=== PATIENT | female | born 1990 | race Hispanic/Latino ===

== ENCOUNTER 2017-03-13 21:26 | Observation (INO) | payer OTHER ==
[2017-03-13 21:35] VITALS: BP 121/75; PULSE 103; RESP 16; TEMP 98.8; O2SAT 99
[2017-03-13] MEDS ORDERED: Sodium Chloride 0.9% 1,000 ML IV STA (22:17)
[2017-03-13 22:47] LABS: BASO % 0.1 % (0.0-2.0); EOS % 0.2 % (0.0-4.0); HEMATOCRIT 38.4 % (34.0-47.0); LYMPH # 0.8 K/uL (1.0-4.3); LYMPH % 12.6 % (20.0-40.0); MEAN CELL VOLUME 88.4 fl (81.0-99.0); MEAN CORPUSCULAR HEMOGLOBIN 29.2 pg (27.0-31.0); MEAN PLATELET VOLUME 7.9 fl (7.2-11.7); MONO # 0.5 K/uL (0.0-0.8); MONO % 8.4 % (0.0-10.0); NEUT # 4.8 K/uL (1.8-7.0); NEUT % 78.7 % (50.0-75.0); RED CELL DISTRIBUTION WIDTH 12.6 % (11.5-14.5); WHITE BLOOD COUNT 6.1 K/uL (4.8-10.8)
--- NOTE | 2017-03-13 23:04 | ED PDOC ---
HPI: Abdomen Time Seen by Provider: 03/13/17 21:37 Chief Complaint (Nursing): Abdominal Pain Chief Complaint (Provider): abdominal pain History Per: Patient History/Exam Limitations: no limitations Onset/Duration Of Symptoms: Days (1) Current Symptoms Are (Timing): Still Present Location Of Pain/Discomfort: LLQ, Suprapubic Quality Of Discomfort: Cramping Associated Symptoms: Nausea, Diarrhea (x2). denies: Fever, Chills, Vomiting Additional History Per: Patient Additional Complaint(s): 26 y/o female presents with abdominal pain x 1 day. Patient states pain diffusely "dull" but intermittently notes sharp pain in left lower abdomen. Associated nonbloody diarrhea x 2. Patient seen by PMD and prescirbed Bentyl with little improvement. Denies fever, vomiting, chest pain, shortness of breath, palpitations, urinary symptoms, vaginal bleeding/discharge. Abnormal Vaginal Bleeding: No Past Medical History Reviewed: Historical Data, Nursing Documentation, Vital Signs Vital Signs: Last Vital Signs Temp 98.8 F 03/13/17 21:33 Pulse 103 H 03/13/17 21:33 Resp 16 03/13/17 21:33 BP 121/75 03/13/17 21:33 Pulse Ox 99 03/14/17 04:17 - Medical History PMH: No Chronic Diseases - Surgical History Surgical History: No Surg Hx - Family History Family History: States: No Known Family Hx - Living Arrangements Living Arrangements: Alone - Allergies Allergies/Adverse Reactions: Allergies Allergy/AdvReac Type Severity Reaction Status Date / Time No Known Allergies Allergy Verified 03/13/17 21:32 Review of Systems ROS Statement: Except As Marked, All Systems Reviewed And Found Negative Gastrointestinal: Positive for: Abdominal Pain Physical Exam - Reviewed Nursing Documentation Reviewed: Yes Vital Signs Reviewed: Yes - Physical Exam Appears: Positive for: Well, Non-toxic, No Acute Distress Head Exam: Positive for: ATRAUMATIC, NORMAL INSPECTION, NORMOCEPHALIC Skin: Positive for: Normal Color Eye Exam: Positive for: Normal appearance ENT: Positive for: Normal ENT Inspection Cardiovascular/Chest: Positive for: Regular Rate, Rhythm Respiratory: Positive for: Normal Breath Sounds Gastrointestinal/Abdominal: Positive for: Bowel Sounds, Soft, Tenderness (llq, suprapubic) Back: Positive for: Normal Inspection Extremity: Positive for: Normal ROM Neurologic/Psych: Positive for: Alert, Oriented - Laboratory Results Result Diagrams: 03/13/17 22:43 03/13/17 22:44 - ECG O2 Sat by Pulse Oximetry: 99 - Progress ED Course And Treament: labs, u/s, IV fluids, IV toradol EXAM: US Pelvis, Transvaginal EXAM DATE/TIME: 03/13/2017 10:17 PM CLINICAL HISTORY: 26 years old, female; Pain; Pelvic pain; Additional info: Left-sided pain TECHNIQUE: Real-time transvaginal pelvic ultrasound (complete) with image documentation. Transvaginal imaging was used for better evaluation of the endometrium and adnexa. COMPARISON: No relevant prior studies available. FINDINGS: The uterus is normal. The endometrium measures 4 mm. The right ovary is normal. The left ovary is normal. Color flow and doppler vascular waveforms were demonstrated to both ovaries. There is no significant free fluid. Fluid-filled bowel loops are noted within the pelvis. IMPRESSION: Normal uterus and ovaries. Fluid-filled bowel. Thank you for allowing us to participate in the care of your patient. ED OBSERVATION Discharge: Yes Date of observation admission: 03/14/17 Time of observation admission: 00:00 - Observation admission statement Patient is placed on observation because of need: for additional diagnostics to rule-out acute/life threatening conditio - Goals of Observation Goals of Observation: Improvement of pain - Progress Note Progress Note: 03/14/17 00:00 Patient resting comfortably; will start PO contrast 03/14/17 1:30 Patient resting comfortably 3:00 Patient resting comfortably, awaiting CT results 03/14/17 04:11 EXAM: CT Abdomen and Pelvis With Intravenous Contrast EXAM DATE/TIME: 03/13/2017 11:40 PM CLINICAL HISTORY: 26 years old, female; Pain; Abdominal pain; Generalized; Additional info: Abd pain, diarrhea TECHNIQUE: Axial computed tomography images of the abdomen and pelvis with intravenous contrast. All CT scans at this facility use one or more dose reduction techniques, viz.: automated exposure control; ma/kV adjustment per patient size (including targeted exams where dose is matched to indication; i.e. head); or iterative reconstruction technique. Coronal and sagittal reformatted images were created and reviewed. CONTRAST: 95 mL of omnipaque administered intravenously. COMPARISON: US - TRANSVAGINAL 03/13/2017 11:02:14 PM FINDINGS: The liver is normal. The spleen is normal. The pancreas is normal. No gallstones. No hydronephrosis or perinephric stranding. Scattered diverticuli are noted in the sigmoid colon. Motion through the nondistended sigmoid colon results in the centeno appearing thickened and indistinct. There is no stranding in the adjacent fat suggest active inflammatory/infectious process. A normal appendix is identified axial images 131 through 145, coronal images 24 through 29. The uterus appears normal. IMPRESSION: No acute findings. Patient states she is feeling better. Patient educated on findings, advised to continue Bentyl as previously instructed. [place] diet. Fluids. Follow up PMD 2-3 days. Return to ED for worsening/concerning symptoms. Disposition - Clinical Impression Clinical Impression: Gastroenteritis - Patient ED Disposition Is Patient to be Admitted: No Counseled Patient/Family Regarding: Studies Performed, Diagnosis, Need For Followup - Disposition Disposition: Routine/Home Disposition Time: 04:17 Condition: IMPROVED
[2017-03-13 23:20] LABS: ALB/GLOB RATIO 1.5 (1.0-2.1); ALKALINE PHOSPHATASE 56 U/L (38-126); ALT/SGPT 34 U/L (9-52); AST/SGOT 45 U/L (14-36); BILIRUBIN,TOTAL 1.1 mg/dl (0.2-1.3); BLOOD UREA NITROGEN 8 mg/dl (7-17); CALCIUM 9.1 mg/dL (8.4-10.2); CARBON DIOXIDE 21 mmol/L (22-30); CHLORIDE 101 mmol/L (98-107); GFR AFRICAN-AMERICAN > 60; GLUCOSE,RANDOM 107 mg/dL (65-105); POTASSIUM 3.7 MMOL/L (3.6-5.0); SODIUM 139 mmol/l (132-148); TOTAL PROTEIN 7.2 G/DL (6.3-8.2)
[2017-03-13] MEDS ORDERED: Iohexol 240 (50 ml) PO ONE (23:40)
[2017-03-13] MEDS ORDERED: Iohexol 240 (50 ml) ONE (23:59)
[2017-03-14 00:16] LABS: RBC URINE 1 /hpf (0-3); URINE BACTERIA OCC (<OCC); URINE BILIRUBIN NEGATIVE (NEGATIVE); URINE BLOOD SMALL (NEGATIVE); URINE COLOR STRAW (YELLOW); URINE GLUCOSE (UA) NEG (Normal); URINE KETONE NEGATIVE (NEGATIVE); URINE LEUKOCYTE ESTERASE NEG Leu/uL (Negative); URINE PROTEIN NEGATIVE (NEGATIVE); URINE UROBILINOGEN 0.2-1.0 mg/dL (0.2-1.0); WBC URINE 1 /hpf (0-5)
[2017-03-14] MEDS ORDERED: Iohexol 300 100 ML IJ ONE (02:22)
[2017-03-14] MEDS ORDERED: Sodium Chloride 0.9% 50 ML IV ONE (02:22)
--- NOTE | 2017-03-14 09:03 | CT ---
PROCEDURE: CT Abdomen and Pelvis with contrast HISTORY: abd pain, diarrhea COMPARISON: None. TECHNIQUE: Contrast dose: 95 mL Omnipaque 300 Radiation dose: Total exam DLP = 782.49 mGy-cm. This CT exam was performed using one or more of the following dose reduction techniques: Automated exposure control, adjustment of the mA and/or kV according to patient size, and/or use of iterative reconstruction technique. FINDINGS: LOWER THORAX: Unremarkable. LIVER: Unremarkable. No gross lesion or ductal dilatation. GALLBLADDER AND BILE DUCTS: Unremarkable. PANCREAS: Unremarkable. No gross lesion or ductal dilatation. SPLEEN: Unremarkable. ADRENALS: Unremarkable. No mass. KIDNEYS AND URETERS: Unremarkable. No hydronephrosis. No solid mass. VASCULATURE: Unremarkable. No aortic aneurysm. BOWEL: Circumferential mural thickening of several loops of proximal jejunum in the left upper quadrant of the abdomen. Consistent with nonspecific enteritis. This may be infectious or inflammatory. No other abnormal bowel loops are identified. There is no bowel obstruction. APPENDIX: Normal appendix. PERITONEUM: Unremarkable. No free fluid. No free air. LYMPH NODES: Unremarkable. No enlarged lymph nodes. BLADDER: Unremarkable. REPRODUCTIVE: Normal uterus BONES: No acute fracture. OTHER FINDINGS: None. IMPRESSION: Nonspecific mural thickening of several loops of proximal jejunum consistent with nonspecific enteritis. The remainder of the examination is unremarkable. Preliminary interpretation of this examination was reported by [facility] at 4:09 a.m. on 03/14/2017. There is discordance of this report with the preliminary interpretation, specifically regarding the finding of nonspecific enteritis involving proximal jejunal loops. There is no other discrepancy with the preliminary report. .
--- NOTE | 2017-03-14 09:53 | US ---
HISTORY: left-sided pain COMPARISON: None available. TECHNIQUE: Transvaginal FINDINGS: UTERUS: Measures 6.4 x 2.4 x 3.4 cm. Normal in size and appearance. No fibroid or other mass lesion seen. ENDOMETRIUM: Measures 4 mm in diameter. Unremarkable. CERVIX: No cervical abnormality identified. RIGHT OVARY: Measures 2.4 x 1.3 x 1.2 cm. No solid mass. Normal flow. LEFT OVARY: Measures 1.2 x 1.7 x 1.1 cm. No solid mass. Normal flow. FREE FLUID: No significant free fluid noted. OTHER FINDINGS: None. IMPRESSION: Unremarkable pelvic ultrasound. Preliminary interpretation of this examination was reported by [facility] at 11:55 p.m. on 04/02/2017. There is concurrence of this report with the preliminary interpretation.
== END 2017-03-14 04:17 | disposition home or self-care (01) ==
LOC: H.ER 21:26 → H.EROBSV 23:59
PROVIDERS: ADMIT Emergency Medicine; ATTEND Emergency Medicine
DX: K52.9 Noninfective gastroenteritis and colitis, unspecified (principal)
CPT/HCPCS: 74177; 76830; 80053; 81003; 81025; 85025; 99283; G0378; J1885; J7040; Q9966; Q9967